=== PATIENT | female | born 1965 | race Two or more races ===

== ENCOUNTER 2021-01-28 10:05 | Emergency (ER) | payer MEDICAID, OTHER ==
[~2021-01-28] VITALS: Ht 152.4 cm; Wt 68.0 kg
[2021-01-28] MEDS ORDERED: IBUPROFEN 600 MG TABLET PO ONE (10:30)
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
[2021-01-28] MEDS ORDERED: IBUPROFEN 600 MG TABLET ONE (10:46)
[2021-01-28] MEDS ORDERED: IBUP-1957 PO (11:28)
[2021-01-28 11:59] VITALS: BP 141/70
--- NOTE | 2021-01-28 11:59 | NUR ---
Patient discharged to home in stable condition. Written and verbal after care instructions given. Patient verbalizes understanding of instruction.
== END 2021-01-28 11:59 | disposition home or self-care (01) ==
LOC: ER 10:17
DX: S20.211A Contusion of right front wall of thorax, initial encounter (principal); E78.5 Hyperlipidemia, unspecified; W50.1XXA Accidental kick by another person, initial encounter; Y93.89 Activity, other specified; Y92.89 Other specified places as the place of occurrence of the external cause; Y99.0 Civilian activity done for income or pay
CPT/HCPCS: 71100-TC

== ENCOUNTER 2022-08-28 10:43 | Emergency (ER) | payer MEDICAID ==
[~2022-08-28] VITALS: Ht 162.6 cm; Wt 65.8 kg
[~2022-08-28 10:43] MED LIST: IBUP-1957 PO
[2022-08-28 10:49] VITALS: BP 144/82
--- NOTE | 2022-08-28 10:50 | NUR ---
THE PATIENT BIBS TO ER FOR WORSENING COUGH AND SORETHROAT X 2 WEEKS. IN ROOM AIR AND DENIES SOB. RESPIRATION REGULAR AND UNLABORED. WILL CONTINUE TO MONITOR THE PATIENT.
[2022-08-28] MEDS ORDERED: LORA10TA7 PO (11:06)
--- NOTE | 2022-08-28 11:25 | NUR ---
Patient discharged to home in stable condition. Written and verbal after care instructions given. Patient verbalizes understanding of instruction.
== END 2022-08-28 11:25 | disposition home or self-care (01) ==
LOC: ER 10:48
DX: J02.8 Acute pharyngitis due to other specified organisms (principal); E78.5 Hyperlipidemia, unspecified; Z79.899 Other long term (current) drug therapy

== ENCOUNTER 2023-02-18 09:26 | Emergency (ER) | payer MEDICAID ==
[~2023-02-18] VITALS: Ht 154.9 cm; Wt 65.8 kg
[~2023-02-18 09:26] MED LIST changes: +LORA10TA7 PO
[2023-02-18] MEDS ORDERED: ONDANSETRON HCL/PF 4 MG/2 ML VIAL ONE (10:22)
[2023-02-18 10:26] LABS: BASOPHILS % (AUTO) 0.3 % (0.0-2.0); EOSINOPHILS % (AUTO) 0.4 % (0.0-6.0); HEMATOCRIT 48 % (33-45); HEMOGLOBIN 16.1 g/dL (11.5-14.8); LYMPHOCYTES # (AUTO) 0.9 K/uL (0.8-4.8); LYMPHOCYTES % (AUTO) 9.1 % (20.0-44.0); MEAN CORPUSCULAR HEMOGLOBIN 30 PG (26.0-33.0); MEAN CORPUSCULAR HGB CONC 33 g/dl (31.0-36.0); MEAN CORPUSCULAR VOLUME 88 fL (82-100); MONOCYTES # (AUTO) 0.2 K/uL (0.1-1.30); MONOCYTES % (AUTO) 2.6 % (2.0-12.0); NEUTROPHILS # (AUTO) 8.4 K/uL (1.8-8.9); NEUTROPHILS % (AUTO) 87.6 % (43.0-81.0); PLATELET COUNT (AUTO) 255 K/uL (150-450); RED BLOOD CELL COUNT(AUTO) 5.44 MIL/uL (4.0-5.2); RED CELL DISTRIBUTION WIDTH 13.4 % (11.5-15.0); WHITE BLOOD COUNT (AUTO) 9.6 K/uL (4.3-11.0)
[2023-02-18 10:29] LABS: APPEARANCE,URINE CLEAR (CLEAR); BILIRUBIN,URINE NEGATIVE (NEGATIVE); BLOOD, URINE TRACE-INTA Ery/uL (NEGATIVE); COLOR,URINE YELLOW (YELLOW); KETONES,URINE TRACE mg/dL (NEGATIVE); LEUKOCYTE ESTERASE ,URINE NEGATIVE (NEGATIVE); NITRITE, URINE NEGATIVE (NEGATIVE); PROTEIN,URINE NEGATIVE (NEGATIVE); UGLUCOSE 3+ mg/dL (NEGATIVE); UROBILINOGEN,URINE 0.2 EU/dL (0.2)
[2023-02-18] MEDS ORDERED: ONDANSETRON HCL/PF 4 MG/2 ML VIAL IVP ONE (10:30)
[2023-02-18] MEDS ORDERED: IV NS 0.9% 500 ML BAG IV ONE (10:30)
[2023-02-18 10:35] LABS: CALCIUM, SERUM 9.1 mg/dL (8.5-10.1); CREATININE 0.5 mg/dL (0.6-1.3); POTASSIUM 4.3 mmol/L (3.5-5.1)
[2023-02-18 10:44] LABS: ADD URINE CULTURE NO; BACTERIA,URINE Rare /HPF (None Seen); RBC,URINE 0-2 /HPF (0-2); WBC,URINE 0-2 /HPF (0-3)
[2023-02-18 10:45] LABS: SQUAMOUS EPITHELIAL CELL,UR Few /HPF (None Seen)
[2023-02-18 10:46] LABS: ALBUMIN 3.7 g/dL (3.4-5.0); BILIRUBIN,DIRECT 0.1 mg/dL (0.0-0.2); BILIRUBIN,TOTAL 0.6 mg/dL (0.2-1.0)
[2023-02-18] MEDS ORDERED: ONDA4TAB5 PO (12:11)
[2023-02-18 12:40] VITALS: BP 130/68; TEMP 98.5; O2SAT 97
== END 2023-02-18 12:52 | disposition home or self-care (01) ==
LOC: ER 09:26
DX: R19.7 Diarrhea, unspecified (principal); M79.10 Myalgia, unspecified site; R11.2 Nausea with vomiting, unspecified; Z20.822 Contact with and (suspected) exposure to COVID-19
CPT/HCPCS: 99285; 96374; 71045; 87426; 87804 ×2; 85025; 80048; 87086; 83690; 80076; 81001; 36415; J2405; J7030; J7040; C9803

== ENCOUNTER 2024-04-17 11:08 | Emergency (ER) | payer MEDICAID ==
[~2024-04-17] VITALS: Ht 154.9 cm; Wt 65.8 kg
[~2024-04-17 11:08] MED LIST changes: +ONDA4TAB5 PO
[2024-04-17 11:58] LABS: BILIRUBIN,URINE 1+ (NEGATIVE); BLOOD, URINE TRACE-INTA Ery/uL (NEGATIVE); COLOR,URINE YELLOW (YELLOW); KETONES,URINE 2+ mg/dL (NEGATIVE); LEUKOCYTE ESTERASE ,URINE NEGATIVE (NEGATIVE); NITRITE, URINE NEGATIVE (NEGATIVE); PH,URINE 5.5 (5.0-8.0); PROTEIN,URINE 2+ mg/dl (NEGATIVE); UGLUCOSE 2+ mg/dL (NEGATIVE)
[2024-04-17 12:01] LABS: BASOPHILS % (AUTO) 0.4 % (0.0-2.0); EOSINOPHILS # (AUTO) 0.1 K/uL (0.0-0.7); EOSINOPHILS % (AUTO) 1.2 % (0.0-6.0); HEMATOCRIT 46 % (33-45); HEMOGLOBIN 16.2 g/dL (11.5-14.8); LYMPHOCYTES # (AUTO) 1.3 K/uL (0.8-4.8); MEAN CORPUSCULAR HEMOGLOBIN 31 PG (26.0-33.0); MEAN CORPUSCULAR HGB CONC 35 g/dl (31.0-36.0); MEAN CORPUSCULAR VOLUME 87 fL (82-100); MONOCYTES # (AUTO) 0.5 K/uL (0.1-1.30); MONOCYTES % (AUTO) 7.2 % (2.0-12.0); NEUTROPHILS # (AUTO) 5.3 K/uL (1.8-8.9); NEUTROPHILS % (AUTO) 73.2 % (43.0-81.0); PLATELET COUNT (AUTO) 232 K/uL (150-450); RED BLOOD CELL COUNT(AUTO) 5.28 MIL/uL (4.0-5.2); RED CELL DISTRIBUTION WIDTH 12.8 % (11.5-15.0); WHITE BLOOD COUNT (AUTO) 7.2 K/uL (4.3-11.0)
[2024-04-17 12:14] LABS: APPEARANCE,URINE SLIGHTLY CLOUDY (CLEAR)
[2024-04-17 12:15] LABS: ADD URINE CULTURE YES; BACTERIA,URINE Moderate /HPF (None Seen); RBC,URINE 0-2 /HPF (0-2); SQUAMOUS EPITHELIAL CELL,UR Many /HPF (None Seen)
[2024-04-17 12:19] LABS: CALCIUM, SERUM 8.8 mg/dL (8.5-10.1); CREATININE 0.5 mg/dL (0.6-1.3); POTASSIUM 3.4 mmol/L (3.5-5.1)
[2024-04-17 12:28] LABS: ALBUMIN 3.5 g/dL (3.4-5.0); BILIRUBIN,DIRECT 0.2 mg/dL (0.0-0.2); BILIRUBIN,TOTAL 0.5 mg/dL (0.2-1.0); TOTAL PROTEIN, SERUM 8.5 g/dL (6.4-8.2)
[2024-04-17] MEDS ORDERED: ACETAMINOPHEN ES 500 MG TABLET ONE (12:35)
[2024-04-17] MEDS: ACETAMINOPHEN ES 500 MG TABLET PO ONE (12:37)
[2024-04-17] MEDS ORDERED: CIPR-262 PO (13:00)
[2024-04-17 13:14] VITALS: BP 119/74; O2SAT 98
== END 2024-04-17 13:14 | disposition home or self-care (01) ==
LOC: ER 11:28
DX: N39.0 Urinary tract infection, site not specified (principal); E11.9 Type 2 diabetes mellitus without complications; E78.5 Hyperlipidemia, unspecified; Z79.1 Long term (current) use of non-steroidal anti-inflammatories (NSAID)
CPT/HCPCS: 36415; 76700-TC; 80048-TC; 80076-TC; 81001; 83690-TC; 85025-TC

== ENCOUNTER 2024-05-17 15:49 | Emergency (ER) | payer MEDICAID ==
[~2024-05-17] VITALS: Ht 154.9 cm; Wt 63.5 kg
[~2024-05-17 15:49] MED LIST changes: +CIPR-262 PO
[2024-05-17 16:19] VITALS: BP 114/71; TEMP 97.9; O2SAT 98
[2024-05-17] MEDS ORDERED: LIDO1ADH71 TOP (18:44)
== END 2024-05-17 19:02 | disposition home or self-care (01) ==
LOC: ER 16:08
DX: R07.81 Pleurodynia (principal); E11.9 Type 2 diabetes mellitus without complications; E78.5 Hyperlipidemia, unspecified; Z79.1 Long term (current) use of non-steroidal anti-inflammatories (NSAID)
CPT/HCPCS: 71111-TC